=== PATIENT | female | born 1945 | race Caucasian/White ===

== ENCOUNTER 2018-04-30 07:26 | Inpatient (IN) ==
--- NOTE | 2018-04-04 13:30 | Anesthesiology Consultation ---
Date of Service April 04, 2018 Assessment & Plan (1) Encounter for pre-operative examination: Chart Review Chart Review: Acceptable Risk for Surgery and Patient seen in Pre Admission Testing Consults Requested medical (Dr. Antoine Mondragon - Surgeon ordered (04/15)) Patient was seen by PCP and a clearance letter was sent to ortho. Dr. Mondragon wrote that "she is considered to be optimized for surgical intervention. Her operative risk would be average." Spoke with patient to be sure she was certain about what to do with her Metformin. Teaching & Discussion Pre-Anesthesia Teaching/Discussion Notes: Instructed NPO after midnight before surgery, except medications with 15 cc of water. Medication instructions provided according to the PAT guidelines. History Surgery Operation Date: 04/30/18 07:00 Proposed Procedures p Right Total Shoulder Arthroplasty - Higinio Sahu MD Height/Weight Height: 5 ft 1.5 in Weight: 63.4 kg Allergies Allergy/AdvReac Type Severity Reaction Status Date / Time meperidine AdvReac Unknown NAUSEA Verified 03/28/18 10:21 pramipexole AdvReac Unknown Nausea Verified 03/28/18 10:23 [id number]-[id number] Reductase AdvReac Unknown MUSCLE Verified 03/28/18 10:21 Inhibitor CRAMPS WALNUTS Allergy Unknown COLD SORES Uncoded 03/28/18 10:21 Medications Home Medications Medication Instructions Recorded Confirmed Last Taken atorvastatin 20 mg PO WK 03/28/18 04/04/18 Unknown gabapentin [Neurontin] 1 dose PO HS 03/28/18 04/04/18 Unknown hydrocodone-acetaminophen 1 tab PO Q6H PRN 03/28/18 03/28/18 Unknown levothyroxine 50 mcg PO QAM 03/28/18 03/28/18 Unknown lubiprostone [Amitiza] 24 mcg PO BID 03/28/18 03/28/18 Unknown metformin 1,000 mg PO BID 03/28/18 03/28/18 Unknown omeprazole 20 mg PO BID 03/28/18 03/28/18 Unknown oxybutynin chloride 5 mg PO UD PRN 03/28/18 03/28/18 Unknown Past Medical History Medical History Acid reflux Arthritis Colon polyps Diabetes Family history of reaction to anesthesia DAUGHTER HAD HIGH FEVER WHEN HAD SURGERY WITH ETHER Fibromyalgia THYROID MED FOR History of anesthesia reaction PATIENT REPORTS MEAN WHEN WAKING UP FROM ANKLE SURGERY/SEPTEMBER 1991/[facility] History of depression COMPULSIVE SPENDING History of stomach ulcers Hx of hysterectomy OVARIES NOT TAKEN Hyperlipidemia Hypothyroidism Past medical history not known due to adoption SOME FAMILY HX UNKNOWN, PATIENT ADOPTED Rectocele REPAIRED X 3, NOW BACK AGAIN Restless leg syndrome Stomach ulcer Past Surgical History Surgical History History of arthroplasty of left knee History of arthroplasty of right knee History of open reduction and internal fixation (ORIF) procedure R ANKLE/HARDWARE SINCE REMOVED Hx of cataract surgery R&L Hx of colonoscopy Hx of endoscopy UPPER Hx of gastric bypass APPROX 15 YRS AGO Hx of sinus surgery Hx of tonsillectomy Past Anesthesia History No Hx of Anesthesia Complications and No Family Hx of Anesthesia Complications ( Daughter had very high fever after anesthesia with ether. 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 Tends to her house. Able to climb FOS. Denies CP. Rarely gets SOB with activity. ) Review of Systems Patient denies chest pain, reflux (controlled with medications), cough, wheezing , palpitations. +occasionally gets SOB with activity +joint pain Physical Exam Vital Signs BP: 107/68 P: 62 R: 14 T: 98.4 SPO2: 98% on RA ENMT Thyromental Distance: > or= 3.5 Finger Breadths (3.5) Mallampati Class: II Mouth / Teeth: 2 1. Upper Dentures 2. Caps Neck normal visual inspection and trachea midline Respiratory normal respiratory effort Auscultation: lungs clear to auscultation bilaterally Cardiovascular Rate/Rhythm: regular rate and regular rhythm Heart Sounds: no murmur Vessels: no carotid bruit Musculoskeletal Spine: normal cervical ROM Extremities: extremities normal to inspection Neurologic moves all extremities Psychiatric Orientation: alert and oriented x 3 Testing Electrocardiogram Date: 02/04/18 Findings: + NSR @ (74) Chest X-Ray Date: 04/04/18 Findings: + NAD Laboratory Results 04/04/18 14:10 04/04/18 14:10 Blood Type O Positive 04/04/18 14:10 Antibody Screen NEGATIVE 04/04/18 14:10 PT 10.1 Seconds (9.0-12.0) 04/04/18 14:10 INR 1.0 (0.9-1.1) 04/04/18 14:10 APTT 25.9 Seconds (21.0-31.0) 04/04/18 14:10 Hemoglobin A1c 5.9 % (4.5-5.6) H 04/04/18 14:10 Urine Color Yellow 04/04/18 14:10 Urine Appearance Cloudy (Clear) H 04/04/18 14:10 Urine pH 5.5 (4.5-7.5) 04/04/18 14:10 Ur Specific [place] 1.016 (1.000-1.030) 04/04/18 14:10 Urine Protein Negative (Negative) 04/04/18 14:10 Urine Glucose (UA) Negative (Negative) 04/04/18 14:10 Urine Ketones Negative (Negative) 04/04/18 14:10 Urine Nitrite Negative (Negative) 04/04/18 14:10 Ur Leukocyte Esterase 2+ (Negative) H 04/04/18 14:10 Urine WBC (Auto) >30 /hpf (0-5) H 04/04/18 14:10 Urine RBC (Auto) 0-4 /hpf (0-4) 04/04/18 14:10 U Hyaline Cast (Auto) 1-5 /lpf (0-5) 04/04/18 14:10 U Epithel Cells (Auto) 5-10 /lpf (0-5) H 04/04/18 14:10 Urine Bacteria (Auto) 4+ (Negative) H 04/04/18 14:10 04/04/18 14:10 Urine Culture - Final Urine,Clean Catch Escherichia coli Escherichia coli#[address] Sahu's office notified about urine/C&S.
--- NOTE | 2018-04-04 13:32 | PAT Medication Instructions ---
Medication Instructions Date of Service April 04, 2018 Home Medications atorvastatin 20 mg PO WK gabapentin [Neurontin] 1 dose PO HS hydrocodone-acetaminophen 1 tab PO Q6H NEEDED levothyroxine 50 mcg PO QAM lubiprostone [Amitiza] 24 mcg PO BID metformin 1,000 mg PO BID omeprazole 20 mg PO BID oxybutynin chloride 5 mg PO NEEDED Continue as directed atorvastatin 20 mg PO WK Hold the morning of surgery metformin 1,000 mg PO BID lubiprostone [Amitiza] 24 mcg PO BID Take morning of surgery Take with a sip of water, OTHERWISE NOTHING TO EAT OR DRINK AFTER MIDNIGHT: omeprazole 20 mg PO BID levothyroxine 50 mcg PO QAM hydrocodone-acetaminophen 1 tab PO Q6H NEEDED - stop 4 hours before surgery Take evening before surgery oxybutynin chloride 5 mg PO NEEDED omeprazole 20 mg PO BID metformin 1,000 mg PO BID lubiprostone [Amitiza] 24 mcg PO BID hydrocodone-acetaminophen 1 tab PO Q6H NEEDED gabapentin [Neurontin] 1 dose PO HS Other Notes If you have any questions please call us at [phone] or [phone] or [phone] or [phone]
--- NOTE | 2018-04-04 14:44 | XRay Report ---
XR chest Pre-admission PA/Lat HISTORY: 73 years-old Female pat preoperative exam. No acute chest complaints COMPARISON: None available TECHNIQUE: PA and lateral views of the chest FINDINGS: Cardiomediastinal and hilar silhouettes are within normal limits. No pneumothorax, pleural effusion, focal airspace consolidation or overt pulmonary edema. Degenerative changes of the shoulders and spin e. IMPRESSION: No acute process. The above report was generated using voice recognition software. It may contain grammatical, syntax o r spelling errors. Electronically signed by: Flaquito Rosenberg M.D. 04/04/2018 2:42 PM
[2018-04-04 15:14] LABS: Basophils # (auto) 0.02 K/uL (0-0.2); Basophils % (auto) 0.3 %; Eosinophils % (auto) 1.5 %; Hematocrit (blood only) 37.1 % (37-47); Hemoglobin 12.2 g/dL (12.0-16.0); Immature Granulocytes # (auto) 0.03 K/uL (0.00-0.02); Immature Granulocytes % (auto) 0.4 %; Lymphocytes # (auto) 1.77 K/uL (1.2-3.4); Lymphocytes % (auto) 26.5 %; Mean Corpuscular Hgb Conc 32.9 g/dL (32-36); Mean Corpuscular Volume 94.9 fL (80-100); Mean Platelet Volume 9.9 fL (7.4-10.4); Monocytes # (auto) 0.53 K/uL (0.11-0.59); Monocytes % (auto) 7.9 %; Neutrophils # (auto) 4.24 K/uL (1.4-6.5); Neutrophils % (auto) 63.4 %; Platelet Count 356 K/uL (130-400); RDW Standard Deviation 51.8 fL (36.4-46.3); Red Blood Count 3.91 M/uL (4.2-5.4); White Blood Count 6.69 K/uL (4.8-10.8)
[2018-04-04 15:23] LABS: Appearance Urine Cloudy (Clear); Bacteria Urine Automated 4+ (Negative); Bilirubin Urine Negative (Negative); Color Urine Yellow; Glucose Urine UA Negative (Negative); Ketones Urine Negative (Negative); Leukocyte Esterase Urine 2+ (Negative); Nitrite Urine Negative (Negative); Protein Urine Negative (Negative); Specific Gravity Urine 1.016 (1.000-1.030); Urobilinogen Urine Negative (Negative); WBC Urine Automated >30 /hpf (0-5); pH Urine 5.5 (4.5-7.5)
[2018-04-04 15:24] LABS: BUN Creatinine Ratio 16.6 (10-20); Calcium 9.4 mg/dl (8.5-10.1); Creatinine Clr Calc Pharmacy 58.3 ml/min; Est GFR (African American) 94.9; Est GFR (Non-African American) 81.9
[2018-04-04 15:26] LABS: Partial Thromboplastin Time 25.9 Seconds (21.0-31.0); Prothrombin Time 10.1 Seconds (9.0-12.0)
[2018-04-05 07:10] LABS: Estimated Average Glucose 123 mg/dl
--- NOTE | 2018-04-29 20:45 | History and Physical Report ---
DATE OF ADMISSION: 04/30/2018 CHIEF COMPLAINT: Chronic right shoulder pain. HISTORY OF PRESENT ILLNESS: This is a 73-year-old female patient of Dr. Sahu'lily complaining of chronic right shoulder pain, longstanding, now progressively getting worse. The patient has been diagnosed with end-stage osteoarthritis per clinical and radiographic exams. She wishes to proceed with a right total shoulder arthroplasty. PAST MEDICAL HISTORY: Peripheral neuropathy, diabetes mellitus, anemia, osteoarthritis. SOCIAL HISTORY: Nonsmoker, nondrinker. PAST SURGICAL HISTORY: Bilateral knee replacement, sinus surgery, ankle surgery, cataract surgery bilaterally. FAMILY HISTORY: Noncontributory. REVIEW OF SYSTEMS: Chronic right shoulder pain. Otherwise, denies any shortness of breath, chest pain, nausea, vomiting or joint complaint. MEDICATIONS: Include, 1. Atorvastatin 20 mg daily. 2. Hydrocodone as needed. 3. Levothyroxine 50 mcg daily. 4. Metformin 1000 mg twice daily. 5. Niacin 500 mg 3 times daily. 6. Pramipexole 0.5 mg 3 times daily. 7. Zolpidem 10 mg at bedtime. 8. Omeprazole 20 mg daily. 9. Amitiza 8 mcg twice daily with food and water. 10. Tylenol as needed. ALLERGIES: ASPIRIN, LIPITOR, WELLBUTRIN, DEMEROL, ANTI-INFLAMMATORIES, LYRICA, AND CRESTOR. PHYSICAL EXAMINATION: GENERAL: Well-developed, well-nourished, 73-year-old female in no acute distress. She is alert and oriented x3 and pleasant. HEENT: Normocephalic, atraumatic. Extraocular motions are intact. Pupils are equal and reactive to light. HEART: Regular rate and rhythm, no murmurs appreciated. LUNGS: Clear. ABDOMEN: Soft, nontender, bowel sounds present. EXTREMITIES: Right shoulder reveals tenderness diffusely. She has forward elevation of 170, passively 180. She has crepitation and pain with passive range of motion. She has 4+ to 5/5 strength globally. NEUROLOGIC: Neurovascularly, she is intact in her right upper extremity. DIAGNOSES: Right shoulder end-stage osteoarthritis with a history of peripheral neuropathy, diabetes mellitus, anemia, osteoarthritis. PLAN: The patient was advised of her diagnosis. Indications, risks, benefits, postop course have all been reviewed. The patient wished to proceed with a right total shoulder arthroplasty. Necessary consent forms, preoperative testing and clearances will be obtained.
[~2018-04-30 07:26] MED LIST: ACETAMINOPHEN 500 MG TAB PO SCH; CEFAZOLIN 1000MG 1,000 MG/7.5 ML SYR IV SCH; FAMOTIDINE 20 MG TAB PO SCH; GABAPENTIN 300 MG PO SCH; LR 15ML/HR IV SCH; METOCLOPRAMIDE HCL 10 MG TABLET PO SCH; ROPIVACAINE 0.5% 5 MG/ML 30 ML VIAL ONE
--- NOTE | 2018-04-30 08:45 | History & Physical Bridge Note ---
Date of Service April 30, 2018 History & Physical Bridge Note I have examined the patient, reviewed the History & Physical and in the interval since the performance of the History & Physical I have noted the following changes of clinical significance: no changes noted
[2018-04-30] MEDS ORDERED: MIDAZOLAM HCL 1 MG/ML 2ML VIAL ONE ×2 (09:08)
[2018-04-30] MEDS ORDERED: fentaNYL citrate 100 MCG/2 ML VIAL ONE (09:09)
[2018-04-30] MEDS ORDERED: BACITRACIN INJ 50,000 UNIT VIAL ONE (09:40)
[2018-04-30] MEDS ORDERED: EPINEPHrine HCL INJ 1 MG/ML 30ML ONE (10:06)
[2018-04-30] MEDS ORDERED: HYDROmorphone INJ 1 MG/ML SYRINGE IV PRN (10:54)
[2018-04-30] MEDS ORDERED: ATROPINE SULFATE 0.1 MG/ML 5ML SYR IV PRN (10:54)
[2018-04-30] MEDS ORDERED: LABETALOL HCL IV 5 MG/ML 20ML IV PRN (10:54)
[2018-04-30] MEDS ORDERED: ONDANSETRON INJ 2 MG/ML 2 ML VIAL IV PRN ×2 (10:54→14:35)
[2018-04-30] MEDS: EpINEphrine HCL INJ 1 MG/ML 1ML SYRINGE ONE ×2 (11:50→12:45)
[2018-04-30] MEDS ORDERED: LIDOCAINE HCL 2% 2 ML VIAL/AMP(20MG/ML) INFIL ONE (12:09)
[2018-04-30] MEDS ORDERED: ROCURONIUM BROMIDE 10 MG/ML 5 ML VIAL ONE (12:09)
[2018-04-30] MEDS ORDERED: PROPOFOL IV EMULSION 10 MG/ML 20 ML VIAL IV ONE (12:09)
[2018-04-30] MEDS ORDERED: ONDANSETRON INJ 2 MG/ML 2 ML VIAL ONE (12:09)
--- NOTE | 2018-04-30 12:38 | Post Operative Brief Note ---
Immediate Post Op Note v1 Date of Surgery April 30, 2018 Pre & Post Diagnosis Operation Date: 04/30/18 10:10 Pre-Op Diagnosis: Right Shoulder Osteoarthritis glenohumeral joint postop diagnosis: same,biceps tenosynovitis Procedure Operation Date: 04/30/18 10:10 Actual Procedures Right Total Shoulder Arthroplasty,biceps tenodesis(Right) - Higinio Sahu MD Surgeon Higinio Sahu MD Snagger Kevin HAQ Estimated Blood Loss 50 Findings Consistent with Post-Op Diagnosis Specimens HUMERAL HEAD Drains Lewis Catheter and Hemovac Drain (10 fr ) Anesthesia Type General Regional Complications none Disposition Accompanied Patient To Recovery: No Disposition: Recovery Room Overlapping Procedure I was present for: the critical portions of procedure.
--- NOTE | 2018-04-30 14:00 | Anesthesiology Progress Note ---
Date of Service April 30, 2018 Anesthesia Post Procedure Vital Signs Vital Signs: Temp Pulse Resp BP Pulse Ox 04/30/18 13:45 83 11 L 153/72 H 99 04/30/18 13:35 36.2 C L 83 18 151/67 H 99 04/30/18 13:25 84 10 L 127/74 99 04/30/18 13:15 87 10 L 146/73 H 100 04/30/18 13:05 85 12 154/74 H 100 04/30/18 12:57 36.2 C L 90 16 150/70 H 100 04/30/18 12:35 36.2 C L 83 18 151/67 H 99 Notes Mental Status: alert / awake / arousable Patient Amnestic to Procedure: Yes Nausea / Vomiting: adequately controlled Pain: adequately controlled Airway Patency, RR, SpO2: stable & adequate BP & HR: stable & adequate Hydration State: stable & adequate Anesthetic Complications: no major complications apparent
--- NOTE | 2018-04-30 14:04 | XRay Report ---
XR shoulder RT min 2V routine CLINICAL HISTORY: Post shoulder surgery postoperative COMPARISON: None. DISCUSSION: Anatomic alignment post right shoulder arthroplasty. Good contact between prosthetic and the Bone. Surgical drains are in position. There is no evidence for soft tissue swelling. IMPRESSION: Anatomic alignment post right shoulder arthroplasty. The above report was generated using voice recognition software. It may contain grammatical, syntax or spelling errors. Electronically signed by: Richard Jaramillo M.D. 04/30/2018 2:02 PM
[2018-04-30] MEDS ORDERED: OXYBUTYNIN CHLORIDE 5 MG TAB PO PRN (14:35)
[2018-04-30] MEDS ORDERED: DEXTROSE 50% 50 ML SYRINGE IV PRN (15:04)
[2018-04-30] MEDS ORDERED: GLUCOSE 10 TABS/TUBE PO PRN (15:04)
[2018-04-30] MEDS ORDERED: GLUCAGON FOR INJ 1 MG VIAL SQ PRN (15:04)
[2018-04-30] MEDS ORDERED: GLUCOSE 40% GEL 15 GM TUBE PO PRN (15:04)
[2018-04-30] MEDS ORDERED: CARBOHYDRATES FOR HYPOGLYCEMIA PO PRN (15:04)
--- NOTE | 2018-04-30 15:24 | Consultation ---
Date of Consultation April 30, 2018 Assessment & Plan (1) Arthritis of right shoulder region: - S/P R total shoulder arthroplasty and biceps tenodesis on 04/30 - currently pain free - Pain management, DVT prophylaxis, IVF, PT/OT, Surgical Management per primary Present on Admission?: Yes (2) Sinus bradycardia: - Reports only one known episode of this triggering the pre-operative stress testing - states she has never exhibited symptoms of lightheadedness or ill-feelings - So far no noted bradycardia - Could consider outpatient monitoring if warranted however given that she is asymptomatic and no reported unexplained syncopal episodes this can be just routinely monitored Present on Admission?: Yes (3) Type 2 diabetes mellitus: - Has excellent control on Metformin with A1c of 5.9 in March 2018 - Given age she may be a good candidate for dietary control to reduce risk of hypoglycemia but this can be deferred to PCP - Will hold Metformin post-operatively and cover with SSI Present on Admission?: Yes (4) Mixed hyperlipidemia: - Atorvastatin 20 mg weekly - Fridays Present on Admission?: Yes (5) Peripheral neuropathy: - Gabapentin 300 mg HS Present on Admission?: Yes (6) Hypothyroidism: - Reported TSH as outpatient was WNL - Could recheck is having issues again with bradycardia - Levothyroxine 50 mcg daily Present on Admission?: Yes (7) Peptic ulcer disease: - Convert to Protonix 40 mg BID for Omeprazole interchange while in- patient - can continue omeprazole 20 mg BID on discharge Present on Admission?: Yes Supervising Physician Co-Signing Physician Notes Attending note: patient seen and examined with Olivia Armenta PA-C. I agree with her HPI, history, exam, ROS and A/P. I personally reviewed the labs and imaging findings. Patient doing well, pain is controlled. No difficulty breathing. Shoulder pain is minimal at this time. plan to check labs in the AM, continue home meds History of Present Illness Reason for Consultation: Medical Management Attending Physician: Higinio Sahu MD History of Present Illness Ms. Bryant is a 73 y/o with PMHx of T2DM, HLD, Hypothyroidism, Esophageal Papilloma/Decreased Peristalsis, Gastric Ulcer, Sinus Bradycardia, and RLS who is S/P R Shoulder. Currently she is pain free and does not have feeling into the arm or movement yet. She states she had only one episode of known bradycardia and was referred to stress testing but states she has not had any symptoms. She has never known herself to have heart rate issues in the past. Her pre-op stress test was WNL. She stats she has not undergone any cardiac monitoring otherwise. She has good control of her sugars with A1c 5.9. She also underwent EGD with evidence of ulcer that she takes BID PPI for. She denies any cardiac history to include [place] or CHF. No H/O DVT/PE. Allergies Allergy/AdvReac Type Severity Reaction Status Date / Time tree nut Allergy Unknown Blister Verified 04/30/18 15:55 walnut Allergy Unknown Blister Verified 04/30/18 15:51 meperidine AdvReac Unknown NAUSEA Verified 04/30/18 07:52 pramipexole AdvReac Unknown Nausea Verified 04/30/18 07:52 Kgzrjue-Csg-Tyk Reductase AdvReac Unknown MUSCLE Verified 04/30/18 07:52 Inhibitor CRAMPS Home Medications Home Medications Medication Instructions Recorded Confirmed Type atorvastatin 20 mg PO WK 03/28/18 04/30/18 History gabapentin [Neurontin] 1 dose PO HS 03/28/18 04/30/18 History hydrocodone-acetaminophen 1 tab PO Q6H PRN 03/28/18 04/30/18 History levothyroxine 50 mcg PO QAM 03/28/18 04/30/18 History lubiprostone [Amitiza] 24 mcg PO BID 03/28/18 04/30/18 History metformin 1,000 mg PO BID 03/28/18 04/30/18 History omeprazole 20 mg PO BID 03/28/18 04/30/18 History oxybutynin chloride 5 mg PO UD PRN 03/28/18 04/30/18 History Patient History Medical History Acid reflux Arthritis Colon polyps Diabetes Family history of reaction to anesthesia DAUGHTER HAD HIGH FEVER WHEN HAD SURGERY WITH ETHER Fibromyalgia THYROID MED FOR History of depression COMPULSIVE SPENDING History of stomach ulcers Hx of hysterectomy OVARIES NOT TAKEN Hyperlipidemia Hypothyroidism Past medical history not known due to adoption SOME FAMILY HX UNKNOWN, PATIENT ADOPTED Rectocele REPAIRED X 3, NOW BACK AGAIN Restless leg syndrome Stomach ulcer Surgical History History of anesthesia reaction PATIENT REPORTS MEAN WHEN WAKING UP FROM ANKLE SURGERY/SEPTEMBER 1991/[facility] History of arthroplasty of left knee History of arthroplasty of right knee History of open reduction and internal fixation (ORIF) procedure R ANKLE/HARDWARE SINCE REMOVED Hx of cataract surgery R&L Hx of colonoscopy Hx of endoscopy UPPER Hx of gastric bypass APPROX 15 YRS AGO Hx of sinus surgery Hx of tonsillectomy Social History Current Living Situation: Alone Other Information That Helps Us Care for You: No Feels Safe at Home: Yes Smoking Status: Former smoker Cigarettes per Day: SOCIAL SMOKING IN AGE 20'S Do You Dip or Chew Tobacco: No Hx Alcohol Use: No Hx Substance Use: No Beliefs That Will Affect Care: None Preferred Language: Tristanian Communication Ability: Effective Circulation Supervisor Required: No Review of Systems Constitutional: no fever and no chills Ear, Nose, Mouth, Throat: no sore throat, no hoarseness and no dysphagia Respiratory: no cough and no dyspnea Cardiovascular: no chest pain, no palpitations and no lightheadedness Gastrointestinal: no abdominal pain, no nausea, no vomiting, no constipation and no diarrhea/loose stools Genitourinary (Female): no dysuria Musculoskeletal: no joint pain Integumentary: no rash Neurologic: + numbness (in RUE due to nerve block) Physical Exam 2 Vital Signs (Past 24 Hours): Last Vital Signs Temp 36.4 C L 04/30/18 14:10 Pulse 76 04/30/18 15:01 Resp 18 04/30/18 15:01 BP 143/72 H 04/30/18 15:01 Pulse Ox 100 04/30/18 15:01 Constitutional: well developed and well nourished; no acute distress Eyes: + anicteric sclerae ENMT: Ears: no hearing impairment Neck: trachea midline Respiratory: normal respiratory effort, lungs clear to auscultation Cardiovascular: RRR, no murmur, no edema Gastrointestinal (Abdomen): Inspection/Auscultation: normal bowel sounds Percussion/Palpation: abdomen soft; abdomen nontender Musculoskeletal: Head/Neck/Chest: normocephalic, head atraumatic and neck supple RUE with sling in place and drain, no AROM of fingers due to nerve block; 2+ radial/ulnar pulses with immediate cap refill, no cyanosis or coolness to touch Skin: no rashes, warm and dry Neurologic: moves all extremities (except RUE due to nerve block/sling) Psychiatric: A+Ox3, euthymic affect
[2018-04-30] MEDS: POTASSIUM CHLORIDE 10 MEQ in SODIUM CHLORIDE 0.9% 1000ML 1,000 ML IV SCH (16:26)
--- NOTE | 2018-04-30 16:30 | Operative Report ---
Post Operative Report Date of Surgery April 30, 2018 Pre & Post Diagnosis Operation Date: 04/30/18 10:10 Pre-Op Diagnosis: Right Shoulder Osteoarthritis Post-Op Diagnosis: Right Shoulder Osteoarthritis biceps tenosynovitis biceps tendinopathy Procedure Operation Date: 04/30/18 10:10 Actual Procedures Right Total Shoulder Arthroplasty, biceps tenodesis- Higinio Sahu MD Surgeon Higinio Sahu MD Accountant Certified Public Kevin HAQ Estimated Blood Loss 50 Findings Consistent with Post-Op Diagnosis Specimens Humeral head Drains 2 Hemovac Anesthesia Type General Regional Complications none Disposition Accompanied Patient To Recovery: No Disposition: Recovery Room Indications 73-year-old female progressive osteoarthritis of the right shoulder failed conservative management. Chronic pain disability. Radiographs demonstrate she is [id number] netta humeral joint. Typical findings of osteoarthritis with inferior humeral osteophyte. MRI demonstrates intact rotator cuff with significant biceps tenosynovitis. Description of Procedure The patient was taken to the operating room and anesthetized under a general and regional block anesthesia. A towel roll was placed under the medial border of the scapula of the right shoulder. The patient's head was placed on a foam headrest and protective eyewear was placed and the extremities were well padded. The arm was draped free in order to manipulate the shoulder as necessary. The shoulder exam demonstrated that she had decreased external rotation only about 40 degrees. Her forward elevation was 170 degrees. There is [id number] crepitation. She had redundant skin possibly related to weight loss. The shoulder was sterilely prepped and draped in the usual sterile fashion. An anterior deltopectoral approach was performed. A longitudinal incision was made in the interval. The skin was incised sharply and subcutaneous tissues dissected down to the fascia. The cephalic vein was identified and retracted laterally with the deltoid. Any crossing veins were tied off with silk ties and divided. The clavipectoral fascia was divided at the lateral margin of the conjoined tendon and divided up to the level of the coracoacromial ligament which was preserved. The upper 1 cm of the pectoralis was released for inferior exposure. The biceps tendon findings demonstrated marked biceps tenosynovitis with bicipital bone groove spurs. The rotator cuff tendon findings demonstrated rotator cuff is completely intact. The circumflex vessels were identified and tied off with silk ties and divided laterally. The fibers and subscapularis were split longitudinally at the level of the circumflex vessels down to the capsule and then reflected off the inferior capsule using a Kitner elevator. The axillary nerve was identified with a tug test and protected with a blunt Lawrence retractor. The rotator interval was opened up and extended down to the glenoid. The biceps tendon was identified and tenodesed to the pectoralis tendon with cdsteb-[id number] #2 FiberWire sutures and the proximal biceps was resected. The subscapularis tendon was taken down with a trans-tendinous incision leaving a cuff of tissue for repair on the lesser tuberosity. The incision was carried down to the tendon and the capsule and a #1 Vicryl suture was placed into the free end of the subscapularis tendon. The capsule was subperiosteally dissected off the inferior neck of the humerus exposing the humeral osteophytes. The osteophytes were excised with an artist chisel and a rongeur. The capsular release along the inferior neck of the humerus was completed. The humerus was then retracted posterior to the glenoid with a Fukuda retractor. The remainder of the biceps tendon and labrum was resected. The glenoid findings demonstrated concentric wear with grade 4 DJD on glenoid. I did an anterior inferior and posterior inferior release with electrocautery on bone and a Koehler elevator with the axillary nerve continuing to be protected with the blunt Hohmann retractor inferiorly. When the releases were completed and the humeral head was exposed with some extension and external rotation and in anatomic head cut was made using the oscillating saw. The humeral head findings demonstrated eburnated bone some flattening of the head large inferior osteophytes previously excised. The humeral head was then retracted posterior to the glenoid with Hohmann retractors and Bankart retractor placed anteriorly. A central drill hole was made into the glenoid. The glenoid was sized for a size Affinity Cortiloc 44 mm component. The Tornier Ascend Flex total shoulder arthroplasty system was used and the Affinity Cortiloc glenoid component was chosen. The glenoid was reamed and the central drill widened and the guide for the peg holes was placed in the peg holes were drilled and a trial component was placed with a tight fit. The trial was removed and the glenoid was irrigated with pulsatile lavage antibiotic solution and the drill holes were dried and packed with epinephrine- soaked tampons for hemostasis. The Palacos G cement was vacuum mixed. The final component was cemented into position and held in position with pressure until the cement cured. Attention was taken to the humeral preparation. A centralizing awl was used in the canal followed by broaches up to a size 4 standard. This had the appropriate fit and fill. A size 46 x 17 millimeter humeral head was then used. It was rotated into appropriate position. A trial reduction was performed and the shoulder was stable. The trial was removed and the humerus and canal were irrigated with antibiotic solution with bacitracin. 3 drill holes were made into the hard bone in the bicipital groove lateral to the lesser tuberosity and 3 #5 FiberWire transosseous sutures were placed for repair of the subscapularis. After further irrigation of the canal and the final components were assembled. The final components were the 4C standard ascend flex Tornier stem and the 46 x 17 mm low offset humeral head. The implant was then impacted into the humerus with a tight press-fit. The humerus was reduced to the glenoid and stability verified. The subscapularis was repaired with the #5 FiberWire sutures in a Mateus-Perfecto suture technique and lateral row fixation with [id number]-zl-[id number] #2 FiberWire in the soft tissue. The rotator interval was closed and maximal external rotation. The pectoralis was then closed with [id number] #2 FiberWire suture passing the sutures through the biceps tendon to reinforce the tenodesis. 2 Hemovac drains were placed. The deltopectoral interval was closed with [id number] #1 Vicryl sutures. The subcutaneous tissues were closed with interrupted 2-0 Vicryl and the skin was closed with january and a sterile dressing was applied. The patient tolerated the procedure well. Kevin HAQ my physician assistant federal public defender , assisted in soft tissue retraction instrument management suture management and assisted in the subcutaneous and skin closure and will participate in the postoperative care the patient. I attest to the content of the Intraoperative Record and any orders documented therein. Any exceptions are noted below.
[2018-04-30] MEDS: INSULIN ASPART 100 UNITS/ML 3 ML PEN SC SCH ×2 (18:24→20:56)
[2018-04-30] MEDS: CEFAZOLIN 1000MG 1,000 MG/7.5 ML SYR IV SCH (18:38)
[2018-04-30] MEDS: ALUMINUM/MAGNESIUM SUSP 30 ML UDC PO PRN (18:43)
[2018-04-30] MEDS: DOCUSATE SODIUM 100 MG CAP PO SCH (20:50)
[2018-04-30] MEDS: GABAPENTIN 300 MG CAP PO SCH (20:50)
[2018-04-30] MEDS: LUBIPROSTONE 8 MCG CAP PO SCH (20:50)
[2018-04-30] MEDS: SENNA 8.6 MG TAB PO SCH (20:51)
[2018-04-30] MEDS: PANTOprazole 40 MG TAB PO SCH (20:51)
[2018-04-30] MEDS ORDERED: NON-FORMULARY MEDICATION (Omeprazole [Omeprazole] 20 MG) PO SCH (21:00)
[2018-04-30] MEDS: OXYCODONE HCL IR 5 MG TAB (IMMEDIATE RELEASE) PO PRN (22:10)
[2018-04-30] MEDS: HYDROmorphone INJ 0.5 MG/0.5 ML SYR IV PRN (23:25)
[2018-05-01] MEDS: CEFAZOLIN 1000MG 1,000 MG/7.5 ML SYR IV SCH (01:36)
[2018-05-01] MEDS: OXYCODONE HCL IR 5 MG TAB (IMMEDIATE RELEASE) PO PRN ×5 (01:41→19:32)
[2018-05-01] MEDS: HYDROmorphone INJ 0.5 MG/0.5 ML SYR IV PRN ×2 (03:38→07:44)
[2018-05-01] MEDS: POTASSIUM CHLORIDE 10 MEQ in SODIUM CHLORIDE 0.9% 1000ML 1,000 ML IV SCH ×2 (05:46→17:48)
[2018-05-01] MEDS: LEVOTHYROXINE SODIUM 50 MCG TABLET PO SCH (05:46)
[2018-05-01 06:16] LABS: Basophils # (auto) 0.02 K/uL (0-0.2); Basophils % (auto) 0.2 %; Eosinophils # (auto) 0.05 K/uL (0-0.5); Eosinophils % (auto) 0.5 %; Hematocrit (blood only) 31.6 % (37-47); Hemoglobin 10.6 g/dL (12.0-16.0); Immature Granulocytes # (auto) 0.11 K/uL (0.00-0.02); Lymphocytes # (auto) 1.03 K/uL (1.2-3.4); Lymphocytes % (auto) 9.8 %; Mean Corpuscular Hgb Conc 33.5 g/dL (32-36); Mean Corpuscular Volume 93.8 fL (80-100); Mean Platelet Volume 9.2 fL (7.4-10.4); Monocytes # (auto) 0.76 K/uL (0.11-0.59); Monocytes % (auto) 7.2 %; Neutrophils # (auto) 8.56 K/uL (1.4-6.5); Neutrophils % (auto) 81.3 %; Platelet Count 300 K/uL (130-400); RDW Coefficient of Variation 14.3 % (11.5-14.5); RDW Standard Deviation 48.9 fL (36.4-46.3); Red Blood Count 3.37 M/uL (4.2-5.4); White Blood Count 10.53 K/uL (4.8-10.8)
[2018-05-01 06:49] LABS: BUN Creatinine Ratio 14.2 (10-20); Calcium 8.6 mg/dl (8.5-10.1); Creatinine Clr Calc Pharmacy 69.8 ml/min; Est GFR (African American) 102.8; Est GFR (Non-African American) 88.7; Potassium 3.9 mmol/L (3.5-5.1)
[2018-05-01] MEDS: LUBIPROSTONE 8 MCG CAP PO SCH ×2 (08:52→21:03)
[2018-05-01] MEDS: DOCUSATE SODIUM 100 MG CAP PO SCH ×2 (08:52→21:03)
[2018-05-01] MEDS: PANTOprazole 40 MG TAB PO SCH ×2 (08:53→21:03)
[2018-05-01] MEDS: MULTIVITAMIN TAB PO SCH (08:53)
[2018-05-01] MEDS: INSULIN ASPART 100 UNITS/ML 3 ML PEN SC SCH ×4 (08:54→21:02)
[2018-05-01] MEDS ORDERED: KETOROLAC 30 MG/ML VIAL IV STA ×2 (09:42→09:46)
--- NOTE | 2018-05-01 09:59 | Orthopedic Progress Note ---
Date of Service May 01, 2018 Assessment & Plan (1) Arthritis of right shoulder region: POD #1, Right TSA, biceps tenodesis PT/ OT D/C planning- Home w OPPT As per medicine Will add toradol for 24 hrs, D/C dilaudid and add oxycontin q12 Subjective POD #1, Pain control is main issue. Denies sob, cp, n/v. Physical Exam 2 Vital Signs (Past 24 Hours): Last Vital Signs Temp 37.1 C 05/01/18 07:15 Pulse 71 05/01/18 07:15 Resp 20 05/01/18 07:15 BP 160/69 H 05/01/18 07:15 Pulse Ox 95 05/01/18 07:15 Physical Exam: Right shoulder dressing and drain c/d/i, no drainage. fingers mobile. A&Ox3, sling in tact. States she has been ambulatory w/out dizziness.
[2018-05-01] MEDS: OXYCODONE HCL 10 MG TABCR (OXYCONTIN) PO SCH ×2 (11:24→21:50)
--- NOTE | 2018-05-01 11:39 | Hospitalist Progress Note ---
Date of Service May 01, 2018 Assessment & Plan (1) Arthritis of right shoulder region: - S/P R total shoulder arthroplasty and biceps tenodesis on 04/30 - Pain control difficult at this time but Toradol added this AM and will monitor response - Pain management, DVT prophylaxis, IVF, PT/OT, Surgical Management per primary (2) Sinus bradycardia: - Reports only one known episode of this triggering the pre-operative stress testing - states she has never exhibited symptoms of lightheadedness or ill-feelings - One reading while here of HR of 57 - Could consider outpatient monitoring if warranted however given that she is asymptomatic and no reported unexplained syncopal episodes this can be just routinely monitored (3) Type 2 diabetes mellitus: - Has excellent control on Metformin with A1c of 5.9 in March 2018 - Given age she may be a good candidate for dietary control to reduce risk of hypoglycemia but this can be deferred to PCP - Will hold Metformin post-operatively and cover with SSI (4) Mixed hyperlipidemia: - Atorvastatin 20 mg weekly - Fridays (5) Peripheral neuropathy: - Gabapentin 300 mg HS (6) Hypothyroidism: - Reported TSH as outpatient was WNL - Could recheck is having issues again with bradycardia - Levothyroxine 50 mcg daily (7) Peptic ulcer disease: - Convert to Protonix 40 mg BID for Omeprazole interchange while in- patient - can continue omeprazole 20 mg BID on discharge Subjective Reports having significant throbbing pain today with minimal relief with pain medication. Just got Toradol prior to my arrival and will monitor for improvement. Verbalizes no other complaints at this time other than pain. Constitutional: no fever, no chills and no fatigue Ear, Nose, Mouth, Throat: + dry mouth; no sore throat Respiratory: no cough and no dyspnea Cardiovascular: no chest pain and no edema Gastrointestinal: no abdominal pain, no nausea, no vomiting, no constipation and no diarrhea/loose stools Genitourinary (Female): no dysuria Musculoskeletal: + joint pain (R shoulder - throbbing) Integumentary: no rash Neurologic: no tingling and no numbness Physical Exam 2 Vital Signs (Past 24 Hours): Last Vital Signs Temp 37.1 C 05/01/18 07:15 Pulse 71 05/01/18 07:15 Resp 20 05/01/18 07:15 BP 160/69 H 05/01/18 07:15 Pulse Ox 95 05/01/18 07:15 Constitutional: well developed and well nourished; no acute distress Eyes: + anicteric sclerae ENMT: Ears: no hearing impairment Neck: trachea midline Respiratory: normal respiratory effort, lungs clear to auscultation Cardiovascular: RRR, no murmur, no edema Gastrointestinal (Abdomen): Inspection/Auscultation: normal bowel sounds Percussion/Palpation: abdomen soft; abdomen nontender Musculoskeletal: Head/Neck/Chest: normocephalic, head atraumatic and neck supple Extremities: + upper extremity abnormal to inspection (in sling with good cap refill and movement into fingers; drain remains in place) Right Skin: no rashes, warm and dry Neurologic: moves all extremities Psychiatric: A+Ox3, euthymic affect
[2018-05-01] MEDS: ALUMINUM/MAGNESIUM SUSP 30 ML UDC PO PRN (15:38)
[2018-05-01] MEDS: KETOROLAC TROMETHAMINE 15 MG/ML VIAL IV PRN (16:22)
[2018-05-01] MEDS: GABAPENTIN 300 MG CAP PO SCH (21:03)
[2018-05-01] MEDS: SENNA 8.6 MG TAB PO SCH (21:03)
[2018-05-02] MEDS: OXYCODONE HCL IR 5 MG TAB (IMMEDIATE RELEASE) PO PRN ×5 (00:49→21:20)
[2018-05-02] MEDS: LEVOTHYROXINE SODIUM 50 MCG TABLET PO SCH (05:29)
[2018-05-02 05:45] LABS: Basophils # (auto) 0.02 K/uL (0-0.2); Basophils % (auto) 0.2 %; Eosinophils % (auto) 2.1 %; Hematocrit (blood only) 31.2 % (37-47); Hemoglobin 10.3 g/dL (12.0-16.0); Immature Granulocytes # (auto) 0.16 K/uL (0.00-0.02); Immature Granulocytes % (auto) 1.7 %; Lymphocytes # (auto) 1.32 K/uL (1.2-3.4); Lymphocytes % (auto) 14.1 %; Mean Corpuscular Volume 95.1 fL (80-100); Mean Platelet Volume 9.3 fL (7.4-10.4); Monocytes % (auto) 10.7 %; Neutrophils # (auto) 6.66 K/uL (1.4-6.5); Neutrophils % (auto) 71.2 %; Platelet Count 283 K/uL (130-400); RDW Coefficient of Variation 14.5 % (11.5-14.5); RDW Standard Deviation 50.1 fL (36.4-46.3); Red Blood Count 3.28 M/uL (4.2-5.4); White Blood Count 9.36 K/uL (4.8-10.8)
[2018-05-02 06:22] LABS: BUN Creatinine Ratio 14.4 (10-20); Calcium 8.9 mg/dl (8.5-10.1); Est GFR (African American) 105.7; Est GFR (Non-African American) 91.2; Potassium 3.9 mmol/L (3.5-5.1)
[2018-05-02] MEDS: POTASSIUM CHLORIDE 10 MEQ in SODIUM CHLORIDE 0.9% 1000ML 1,000 ML IV SCH (07:45)
--- NOTE | 2018-05-02 08:28 | Orthopedic Progress Note ---
Date of Service May 02, 2018 Assessment & Plan (1) Arthritis of right shoulder region: POD #2, Right TSA, biceps tenodesis PT/ OT D/C planning- Home w HH Sat. As per medicine Subjective POD #1, Pain control is main issue- States a bit better. Denies sob, cp, n/v. C/ o H/A this AM, states she doesnt feel comfortable pain newton to go home today. Physical Exam 2 Vital Signs (Past 24 Hours): Last Vital Signs Temp 36.7 C 05/02/18 07:52 Pulse 60 05/02/18 07:52 Resp 12 05/02/18 07:52 BP 130/84 05/02/18 07:52 Pulse Ox 94 05/02/18 07:52 Physical Exam: Right shoulder dressings c/d/i, no erythema, fingers mobile, sling in tact. A&Ox3.
[2018-05-02] MEDS: KETOROLAC TROMETHAMINE 15 MG/ML VIAL IV PRN (08:41)
[2018-05-02] MEDS: INSULIN ASPART 100 UNITS/ML 3 ML PEN SC SCH ×4 (08:46→21:20)
[2018-05-02] MEDS: DOCUSATE SODIUM 100 MG CAP PO SCH ×2 (08:47→21:18)
[2018-05-02] MEDS: LUBIPROSTONE 8 MCG CAP PO SCH ×2 (08:47→21:19)
[2018-05-02] MEDS: PANTOprazole 40 MG TAB PO SCH ×2 (08:48→21:18)
[2018-05-02] MEDS: MULTIVITAMIN TAB PO SCH (08:48)
[2018-05-02] MEDS ORDERED: ATORVASTATIN 20 MG TAB PO SCH (09:00)
--- NOTE | 2018-05-02 09:55 | Hospitalist Progress Note ---
Date of Service May 02, 2018 Assessment & Plan (1) Arthritis of right shoulder region: - S/P R total shoulder arthroplasty and biceps tenodesis on 04/30 - Pain control difficult at this time but Toradol helping more movement today, working with PT - Pain management, DVT prophylaxis, IVF, PT/OT, Surgical Management per primary (2) Sinus bradycardia: - Reports only one known episode of this triggering the pre-operative stress testing - states she has never exhibited symptoms of lightheadedness or ill-feelings - One reading while here of HR of 57 no need for work up, no symptoms (3) Type 2 diabetes mellitus: - Has excellent control on Metformin with A1c of 5.9 in March 2018 - Given age she may be a good candidate for dietary control to reduce risk of hypoglycemia but this can be deferred to PCP - Will hold Metformin post-operatively and cover with SSI can resume Metformin on discharge (4) Mixed hyperlipidemia: - Atorvastatin 20 mg weekly - Fridays (5) Peripheral neuropathy: - Gabapentin 300 mg HS (6) Hypothyroidism: - Reported TSH as outpatient was WNL - Could recheck is having issues again with bradycardia - Levothyroxine 50 mcg daily (7) Peptic ulcer disease: - Convert to Protonix 40 mg BID for Omeprazole interchange while in- patient - can continue omeprazole 20 mg BID on discharge (8) Constipation: start Miralax daily until she has BM patient medically stable will sign off at this time, call again if new issue arises Subjective Reports having significant throbbing pain today with minimal relief with pain medication. Just got Toradol prior to my arrival and will monitor for improvement. Verbalizes no other complaints at this time other than pain. patient admits to constipation, usually Miralax and Amitiza and coffee in the AM works for her Review of Systems All systems reviewed & are unremarkable except as noted in HPI & below Ear, Nose, Mouth, Throat: + dry mouth; no sore throat Gastrointestinal: + constipation; no abdominal pain, no nausea and no vomiting Musculoskeletal: + joint pain (R shoulder - throbbing) Physical Exam 2 Vital Signs (Past 24 Hours): Last Vital Signs Temp 36.7 C 05/02/18 07:52 Pulse 60 05/02/18 07:52 Resp 12 05/02/18 07:52 BP 130/84 05/02/18 07:52 Pulse Ox 94 05/02/18 07:52 Constitutional: well developed and well nourished; no acute distress Eyes: + anicteric sclerae ENMT: Ears: no hearing impairment Neck: trachea midline Respiratory: normal respiratory effort, lungs clear to auscultation Cardiovascular: RRR, no murmur, no edema Gastrointestinal (Abdomen): Inspection/Auscultation: normal bowel sounds Percussion/Palpation: abdomen soft; abdomen nontender Musculoskeletal: Head/Neck/Chest: normocephalic, head atraumatic and neck supple Shoulder: + shoulder abnormal to inspection (right shoulder swollen) and + limited ROM (right shoulder) Skin: no rashes, warm and dry Neurologic: patellar DTR's 2+ bilat, sensation intact and PERRL, EOMI, accommodation nl, no face palsy, no dysarthria moves all extremities Psychiatric: A+Ox3, euthymic affect Results & Data Laboratory Results Laboratory Results - last 24 hr 05/01/18 05/01/18 05/01/18 11:55 17:05 20:28 WBC RBC Hgb Hct MCV MCH MCHC RDW Std Deviation RDW Coeff of Ellen Plt Count MPV Immature Gran % (Auto) Neut % (Auto) Lymph % (Auto) [place] % (Auto) Eos % (Auto) Baso % (Auto) Immature Gran # (Auto) Neut # (Auto) Lymph # (Auto) [place] # (Auto) Eos # (Auto) Baso # (Auto) Sodium Potassium Chloride Carbon Dioxide Anion Gap BUN Creatinine Est Cr Clr Drug Dosing Est GFR ( Amer) Est GFR (Non-Af Amer) BUN/Creatinine Ratio Glucose POC Glucose 225 H 207 H 158 H Calcium 05/02/18 05/02/18 05/02/18 05:31 05:31 08:22 WBC 9.36 RBC 3.28 L Hgb 10.3 L Hct 31.2 L MCV 95.1 MCH 31.4 MCHC 33.0 RDW Std Deviation 50.1 H RDW Coeff of Ellen 14.5 Plt Count 283 MPV 9.3 Immature Gran % (Auto) 1.7 Neut % (Auto) 71.2 Lymph % (Auto) 14.1 [place] % (Auto) 10.7 Eos % (Auto) 2.1 Baso % (Auto) 0.2 Immature Gran # (Auto) 0.16 H Neut # (Auto) 6.66 H Lymph # (Auto) 1.32 [place] # (Auto) 1.00 H Eos # (Auto) 0.20 Baso # (Auto) 0.02 Sodium 136 Potassium 3.9 Chloride 102 Carbon Dioxide 30 Anion Gap 4.0 BUN 8 Creatinine 0.56 L Est Cr Clr Drug Dosing 76.0 Est GFR ( Amer) 105.7 Est GFR (Non-Af Amer) 91.2 BUN/Creatinine Ratio 14.4 Glucose 143 H POC Glucose 163 H Calcium 8.9 Medications Administered Current Inpatient Medications Acetaminophen (Tylenol) 1,000 mg PO Q8H [facility] Stop: 06/01/18 08:29 Al Hydrox/Mg Hydrox/Simethicone (Maalox) 30 ml PO Q4H PRN PRN Reason: Dyspepsia Stop: 05/30/18 14:34 Last Admin: 05/01/18 15:38 Dose: 30 ml Atorvastatin Calcium (Lipitor) 20 mg PO Fr@0900 [facility] Stop: 06/01/18 08:59 Last Admin: 05/02/18 08:47 Dose: 20 mg Docusate Sodium (Colace) 100 mg PO BID [facility] Stop: 05/30/18 20:59 Last Admin: 05/02/18 08:47 Dose: 100 mg Gabapentin (Neurontin) 300 mg PO HS [facility] Stop: 05/30/18 20:59 Last Admin: 05/01/18 21:03 Dose: 300 mg Glucagon (Glucagen) 1 mg SQ UD PRN; Protocol PRN Reason: Hypoglycemia Protocol Stop: 05/30/18 15:03 Glucose (Dex4 Glucose) 4 - 8 tabs PO UD PRN; Protocol PRN Reason: Hypoglycemia Protocol Stop: 05/30/18 15:03 Glucose (Glucose 40%) 15 - 30 gm PO UD PRN; Protocol PRN Reason: Hypoglycemia Protocol Stop: 05/30/18 15:03 Potassium Chloride 10 meq/ (Sodium Chloride) 1,005 mls @ 75 mls/hr IV .[id number] [facility] Stop: 05/30/18 15:44 Last Admin: 05/02/18 07:45 Dose: 75 mls/hr Insulin Aspart (Novolog Flexpen) 0 units SC ACHS [facility] Stop: 05/30/18 16:29 Last Admin: 05/02/18 08:46 Dose: Not Given Ketorolac Tromethamine (Toradol) 15 mg IV Q6H PRN PRN Reason: Pain Stop: 05/02/18 10:05 Last Admin: 05/02/18 08:41 Dose: 15 mg Levothyroxine Sodium (Synthroid) 50 mcg PO DAILYBB [facility] Stop: 05/31/18 06:29 Last Admin: 05/02/18 05:29 Dose: 50 mcg Lubiprostone (Amitiza) 24 mcg PO BID [facility] Stop: 05/30/18 20:59 Last Admin: 05/02/18 08:47 Dose: 24 mcg Miscellaneous (Carbohydrates For Hypoglycemia) 15 - 30 gm PO UD PRN PRN Reason: Hypoglycemia Treatment Stop: 05/30/18 15:03 Multivitamins (Multivitamin) 1 tab PO QAM [facility] Stop: 05/31/18 08:59 Last Admin: 05/02/18 08:48 Dose: 1 tab Ondansetron HCl (Zofran) 4 mg IV Q6H PRN PRN Reason: Nausea And Vomiting Stop: 05/30/18 14:34 Oxybutynin Chloride (Ditropan) 5 mg PO DAILY PRN PRN Reason: BLADDER URGENCY Stop: 05/30/18 14:34 Oxycodone HCl (Roxicodone Immediate Rel) 5 - 10 mg PO Q4H PRN PRN Reason: Pain Stop: 05/14/18 14:34 Last Admin: 05/02/18 04:23 Dose: 10 mg Oxycodone HCl (Oxycontin) 10 mg PO Q12H [facility] Stop: 05/15/18 10:14 Last Admin: 05/01/18 21:50 Dose: 10 mg Pantoprazole Sodium (Protonix) 40 mg PO BID [facility] Stop: 05/30/18 20:59 Last Admin: 05/02/18 08:48 Dose: 40 mg Sennosides (Senokot) 17.2 mg PO HS [facility] Stop: 05/30/18 20:59 Last Admin: 05/01/18 21:03 Dose: 17.2 mg
[2018-05-02] MEDS: OXYCODONE HCL 10 MG TABCR (OXYCONTIN) PO SCH ×2 (09:59→21:18)
[2018-05-02] MEDS: ACETAMINOPHEN 500 MG TAB PO SCH ×3 (09:59→23:51)
[2018-05-02] MEDS: POLYETHYLENE (MIRALAX) 17 GM PACK PO SCH (12:27)
[2018-05-02] MEDS: GABAPENTIN 300 MG CAP PO SCH (21:18)
[2018-05-02] MEDS: SENNA 8.6 MG TAB PO SCH (21:19)
[2018-05-02] MEDS: ALUMINUM/MAGNESIUM SUSP 30 ML UDC PO PRN (23:46)
[2018-05-03] MEDS: OXYCODONE HCL IR 5 MG TAB (IMMEDIATE RELEASE) PO PRN ×2 (05:36→09:26)
[2018-05-03] MEDS: LEVOTHYROXINE SODIUM 50 MCG TABLET PO SCH (05:38)
[2018-05-03 06:55] LABS: Basophils # (auto) 0.02 K/uL (0-0.2); Basophils % (auto) 0.2 %; Eosinophils # (auto) 0.92 K/uL (0-0.5); Eosinophils % (auto) 10.8 %; Hematocrit (blood only) 30.3 % (37-47); Hemoglobin 10.1 g/dL (12.0-16.0); Immature Granulocytes # (auto) 0.06 K/uL (0.00-0.02); Immature Granulocytes % (auto) 0.7 %; Lymphocytes # (auto) 1.83 K/uL (1.2-3.4); Lymphocytes % (auto) 21.4 %; Mean Corpuscular Hgb Conc 33.3 g/dL (32-36); Mean Corpuscular Volume 94.4 fL (80-100); Mean Platelet Volume 9.8 fL (7.4-10.4); Monocytes # (auto) 0.94 K/uL (0.11-0.59); Neutrophils # (auto) 4.78 K/uL (1.4-6.5); Neutrophils % (auto) 55.9 %; Platelet Count 281 K/uL (130-400); RDW Coefficient of Variation 14.1 % (11.5-14.5); RDW Standard Deviation 48.8 fL (36.4-46.3); Red Blood Count 3.21 M/uL (4.2-5.4); White Blood Count 8.55 K/uL (4.8-10.8)
--- NOTE | 2018-05-03 06:55 | Orthopedic Progress Note ---
Date of Service May 03, 2018 Assessment & Plan (1) Arthritis of right shoulder region: POD #3, Right TSA, biceps tenodesis PT/ OT D/C planning- Home w HH Sat. As per medicine Subjective POD #3, Pain well controlled this am. Denies sob, cp, n/v. Physical Exam 2 Vital Signs (Past 24 Hours): Last Vital Signs Temp 36.8 C 05/03/18 05:57 Pulse 72 05/03/18 05:57 Resp 17 05/03/18 05:57 BP 132/72 05/03/18 05:57 Pulse Ox 98 05/03/18 05:57 Musculoskeletal: rad/med/ulnar nerves intact, dressing clean dry and intact. radial +2
[2018-05-03] MEDS: DOCUSATE SODIUM 100 MG CAP PO SCH (07:40)
[2018-05-03] MEDS: PANTOprazole 40 MG TAB PO SCH (07:40)
[2018-05-03] MEDS: MULTIVITAMIN TAB PO SCH (07:40)
[2018-05-03] MEDS: LUBIPROSTONE 8 MCG CAP PO SCH (07:41)
[2018-05-03] MEDS: POLYETHYLENE (MIRALAX) 17 GM PACK PO SCH (07:41)
[2018-05-03] MEDS: INSULIN ASPART 100 UNITS/ML 3 ML PEN SC SCH (07:47)
[2018-05-03] MEDS: OXYCODONE HCL 10 MG TABCR (OXYCONTIN) PO SCH (09:26)
[2018-05-03] MEDS: ACETAMINOPHEN 500 MG TAB PO SCH (10:07)
--- NOTE | 2018-05-06 03:19 | Discharge Summary ---
DISCHARGE DIAGNOSIS: Right shoulder osteoarthritis with biceps tenosynovitis and biceps tendinopathy. SECONDARY DIAGNOSES: Peripheral neuropathy, diabetes mellitus, anemia. CONSULTS: Olivia Armenta PA-C/Anirudh Asher DO COMPLICATIONS: None. PROCEDURES: Right total shoulder arthroplasty with biceps tenodesis by Dr. Sahu on 04/30/2018. BRIEF HISTORY: As dictated in the history and physical. HOSPITAL SUMMARY: The patient was admitted on the above date and had the above-noted surgery performed, which she tolerated well. [facility] hospitalists were consulted for medical management during the patient's stay. On postoperative day 1, pain control was the main issue and she denied shortness of breath, chest pain, nausea, vomiting. Vital signs were stable. She was afebrile. The right shoulder dressing and drain were clean, dry, and intact. No drainage was noted. Fingers were mobile. Sling was intact. States that she has been ambulatory without dizziness. Medications were adjusted as necessary for her pain control and she was started on physical therapy protocol and continued on DVT prophylaxis and pain management. Plans were for home with outpatient PT. By her second postoperative day, she stated that her pain control was a little bit better. She had no other complaints that morning but that she did not feel comfortable pain new[place] to go home. Vital signs were stable. She was afebrile. Dressings were intact and dry. Fingers were mobile and she was continued on pain management and medical management, and PT and OT protocol. The medicine service signed off secondary to the patient progressing well and remaining stable and by 05/03/2018, on third postoperative day, pain was controlled, she had no complaints. Vital signs were stable. She was afebrile. Now neurovascularly is intact. Dressings clean, dry and intact and it was felt she could be discharged to home. For further review, please see chart. LABORATORY AND X-RAY DATA: As per chart. DISCHARGE INSTRUCTIONS: The patient was discharged home in satisfactory condition on 05/03/2018. DIET: Diabetic. ACTIVITY: Follow total shoulder arthroplasty instructions and special care instructions as well. Follow up with Dr. Sahu in 2 weeks. The patient to call for appointment if one has not been made for you. DISCHARGE MEDICATIONS: Acetaminophen 1000 mg p.o. q. 8 hours, Colace 100 mg p.o. b.i.d., oxycodone 5-10 mg p.o. q. 4 hours p.r.n., OxyContin 10 mg p.o. q. 12 hours. Resume home meds as listed and stop taking hydrocodone/acetaminophen at home.
== END 2018-05-03 11:57 | disposition home health service (06) | DRG 483 ==
LOC: ASU 07:26 → 3E 13:00